=== PATIENT | male | born 1950 | race Caucasian/White ===

== ENCOUNTER 2017-11-10 17:34 | Emergency (ER) | payer MEDICARE, BC ==
[2017-11-10 18:09] VITALS: BP 128/82
[2017-11-10] MEDS ORDERED: Tetan/Diph/Pertus SYR(Tdap)* 0.5 ML SYR(BOOSTRIX) use SYR IM ONE (19:25)
--- NOTE | 2017-11-10 19:33 | UC ---
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 DENIES SALDANA, DIZZINESS, NAUSEA OR VISUAL DISTURBANCE. SUSTAINED A LACERATION TO RIGHT FOREHEAD. NOT UTD TETANUS. - History Of Current Complaint Chief Complaint: UCLaceration Stated Complaint: HEAD LAC Time Seen by Provider: 11/10/17 19:06 Hx Obtained From: Patient, Family/Manager Access - Laceration Location: Head - RIGHT FOREHEAD Mechanism Of Injury: Blunt Trauma Onset/Duration: Sudden Onset, Lasting Hours, Still Present Severity: Moderate Pain Intensity: 2 Pain Scale Used: 0-10 Numeric Aggravating Factors: Nothing - Allergies/Home Medications Allergies/Adverse Reactions: Allergies Allergy/AdvReac Type Severity Reaction Status Date / Time No Known Allergies Allergy Verified 11/10/17 18:04 PMH/Surg Hx/FS Hx/Imm Hx Other Cancer History: SKIN CANCER - Surgical History Surgical History: Yes Surgery Procedure, Year, and Place: carpal tunnel, tonsils - Family History Known Family History: Positive: Hypertension - Social History Alcohol Use: Daily Alcohol Amount: wine with dinner Substance Use Type: None Smoking Status (MU): Never Smoked Tobacco - Immunization History Most Recent Tetanus Shot: 06/2009 Review of Systems Constitutional: Negative Skin: Other - LACERATION Respiratory: Negative Cardiovascular: Negative Gastrointestinal: Negative All Other Systems Reviewed And Are Negative: Yes Physical Exam Triage Information Reviewed: Yes Appearance: Well-Appearing, No Pain Distress, Well-Nourished Vital Signs: Initial Vital Signs Temp 98.2 F 11/10/17 18:03 Pulse 57 11/10/17 18:03 Resp 18 11/10/17 18:03 BP 128/82 11/10/17 18:03 Pulse Ox 98 11/10/17 18:03 Vital Signs Reviewed: Yes Eyes: Positive: Conjunctiva Clear ENT: Positive: Hearing grossly normal, TMs normal Neck: Positive: Supple Respiratory: Positive: No respiratory distress, No accessory muscle use Cardiovascular: Positive: Pulses Normal Abdomen Description: Positive: Soft Musculoskeletal: Positive: No Edema Neurological: Positive: Alert Psychological: Positive: Normal Response To Family, Age Appropriate Behavior Skin: Positive: Other - 4CM CURVED LACERATION RIGHT FOREHEAD Laceration Repair - Laceration Repair 1 Description: Linear Laceration Size After Repair: Length (cm) - 4CM, Width (mm) - 0MM, Depth (mm) - 4MM Modified For Repair: No Type Injection: Local Anesthesia Used: 1.0% Lido Irrigation With Pressure Irrigation Device: Yes Closure Material: Sutures - 8 SIMPLE INTERRUPTED Suture Of: Skin Suture Type: Prolene - 5-0 Laceration Course/Dx - Differential Dx - Laceration/Wound Provider Diagnoses: LACERATION REPAIR - RIGHT FOREHEAD Discharge - Sign-Out/Discharge Documenting (check all that apply): Patient Departure All imaging exams completed and their final reports reviewed: No Studies - Discharge Plan Condition: Stable Disposition: HOME Patient Education Materials: Laceration (ED), Head Injury (ED) Referrals: Edwin Handy MD [Primary Care Provider] - If Needed Additional Instructions: KEEP DRESSINGS IN PLACE AND DRY FOR THE FIRST 24 HRS. THEN YOU MAY REMOVE THE DRESSING AND GENTLY CLEANSE WITH SOAP AND WATER. PAT DRY AND RE-BANDAGE. APPLY THIN LAYER ANTIBIOTIC OINTMENT UNDER BANDAGE FOR FIRST 3-4 DAYS ONLY. CHANGE BANDAGE DAILY AND NEEDED IF IT BECOMES SOILED OR WET. SEEK FOLLOW-UP IF YOU DEVELOP SPREADING REDNESS OF THE SKIN, PURULENT DRAINAGE, FEVER, INCREASED PAIN OR ANY OTHER CONCERNING SYMPTOMS. RETURN TO HAVE YOUR SUTURES REMOVED IN 10 DAYS GO TO THE ED WITHOUT FAIL IF YOU DEVELOP UNEQUAL PUPILS, VISUAL DISTURBANCE, GAIT INSTABILITY, SPEECH DIFFICULTY, NAUSEA/VOMITING, WORSENING HEADACHE, DIZZINESS, CONFUSION, WEAKNESS OR ANY OTHER CONCERNING SYMPTOMS. TETANUS IMMUNIZATION GIVEN (TDAP): You have been given an immunization against tetanus. Please record this in your records. In general, a booster is needed only once every 10 years. The tetanus shot protects against tetanus or "lockjaw," which is a complication of certain wound infections (the tetanus shot cannot protect against the actual infection). The immunization site may become warm and red due to local reaction. If this occurs, apply warm compresses and take aspirin or ibuprofen to reduce inflammation and discomfort. Return for evaluation if the reaction becomes severe. - Billing Disposition and Condition Condition: STABLE Disposition: Home
[2017-11-10] MEDS ORDERED: Lidocaine 1%* 5 ML VIAL INJ ONE (19:59)
== END 2017-11-10 20:40 | disposition home or self-care (01) ==
LOC: UCEAST 17:34
DX: S01.81XA Laceration without foreign body of other part of head, initial encounter (principal); W22.8XXA Striking against or struck by other objects, initial encounter; Y93.9 Activity, unspecified; Y92.9 Unspecified place or not applicable; Z23 Encounter for immunization
CPT/HCPCS: 12052; 90471; 90715; 99211; G0463

== ENCOUNTER 2017-11-21 09:01 | Emergency (ER) | payer BC, MEDICARE ==
[2017-11-21 09:25] VITALS: BP 127/78
--- NOTE | 2017-11-21 09:27 | UC ---
HPI Wound/Suture Re-check - HPI Summary HPI Summary: 67 y/o male presents to the urgent care requesting suture removal s/p laceration repair on 11/10/2017 on his RT side of forehead. Pt reports wound healing well. Pt denies fever, wound drainage, SALDANA, dizziness, visual disturbances, SOB, chest pain, abdominal pain, N/V/D. - History Of Current Complaint Chief Complaint: UCWounds Stated Complaint: STITCH REMOVAL Time Seen by Provider: 11/21/17 09:25 Hx Obtained From: Patient Onset/Duration: Gradual Onset, Lasting Days - 10 days, Resolved Severity: Mild Pain Intensity: 0 Pain Scale Used: 0-10 Numeric Surgery Date: 11/10/17 Head: 1 - 4.0cm - Allergies/Home Medications Allergies/Adverse Reactions: Allergies Allergy/AdvReac Type Severity Reaction Status Date / Time No Known Allergies Allergy Verified 11/21/17 09:20 PMH/Surg Hx/FS Hx/Imm Hx Previously Healthy: Yes - Pt denies PMHX - Surgical History Surgical History: Yes Surgery Procedure, Year, and Place: carpal tunnel, tonsils - Family History Known Family History: Positive: Hypertension - Social History Occupation: Employed Full-time Lives: With Family Alcohol Use: Daily Alcohol Amount: wine with dinner Substance Use Type: None Smoking Status (MU): Never Smoked Tobacco - Immunization History Most Recent Tetanus Shot: 06/2009 Review of Systems Constitutional: Negative Skin: Other - suture removal s/p laceration of Rt side of forehead ENT: Negative Respiratory: Negative Cardiovascular: Negative Gastrointestinal: Negative Genitourinary: Negative Motor: Negative Neurovascular: Negative Musculoskeletal: Negative Neurological: Negative Psychological: Negative Is Patient Immunocompromised?: No All Other Systems Reviewed And Are Negative: Yes Physical Exam Triage Information Reviewed: Yes Appearance: Well-Appearing, No Pain Distress, Well-Nourished Vital Signs: Initial Vital Signs Temp 97.7 F 11/21/17 09:21 Pulse 61 11/21/17 09:21 Resp 18 11/21/17 09:21 BP 127/78 11/21/17 09:21 Pulse Ox 98 11/21/17 09:21 Vital Signs Reviewed: Yes Eye Exam: Normal ENT Exam: Normal Dental Exam: Normal Neck exam: Normal Respiratory Exam: Normal Cardiovascular Exam: Normal Abdominal Exam: Normal Bowel Sounds: Positive: Present Musculoskeletal Exam: Normal Neurological Exam: Normal Psychological Exam: Normal Skin: Positive: Other - RT side of forehead near the scalp w/wound healing well with crusting and moderate granulation over, non tender to palpation, [address] Non tender to palaption, no swelling or drainage observed. Course/Dx - Course Course Of Treatment: 67 y/o male presents to the urgent care requesting suture removal s/p laceration repair on 11/10/2017 on his RT side of forehead. Pt reports wound healing well. Pt denies fever, wound drainage, SALDANA, dizziness, visual disturbances, SOB, chest pain, abdominal pain, N/V/D.Hxobtained. Pt w/ 8 sutures in placed on the Rt side of forehead,Wound healing well with crusting and moderate granulation over, non tender to palpation, 8 sutures removed w/o any difficulty. Pt tolerated well procedure. wound cleaned with sterile water and bacitracin applied over and cover with sterile gauze. Pt advised if redness , pain or fever develops to return to the urgent care or f/u with PCP for further treatment. Pt understood and agreed with plan of care - Differential Dx - Laceration/Wound Differential Diagnoses: Cellulitis, Dehiscence, Healing Wound, Suture Removal Provider Diagnoses: 1- RT side of forehead Suturre removal s/p laceration repair Discharge - Sign-Out/Discharge Documenting (check all that apply): Patient Departure - D/c home All imaging exams completed and their final reports reviewed: No Studies - Discharge Plan Condition: Stable Disposition: HOME Patient Education Materials: Acute Wound Care (ED) Referrals: Edwin Handy MD [Primary Care Provider] - If Needed Additional Instructions: 1-Please apply topical antibiotic over the wound. Keep wound clean and dry 2- If you develop fever or redness around wound please return to the Urgent care or f/u w/ your PCP for further management - Billing Disposition and Condition Condition: STABLE Disposition: Home - Attestation Statements Provider Attestation: Per institutional requirements, I have reviewed the chart, however, I was not consulted specifically or made aware of this patient by the midlevel provider. I did not personally evaluate, interact with , or disposition this patient
== END 2017-11-21 09:47 | disposition home or self-care (01) ==
LOC: UCEAST 09:01
DX: Z48.02 Encounter for removal of sutures (principal)

== ENCOUNTER 2019-04-11 09:28 | Day surgery (SDC) | payer MEDICARE, BC ==
[~2019-04-11 09:28] MED LIST: HYDROmorphone INJ1* 1 MG/ML SYRINGE IV PRN; Metoclopramide IV* 5 MG/ML 2 ML VIAL IV PRN; Naloxone* 0.4 MG/ML 1 ML VIAL IV PRN; Ondansetron INJ* 2 MG/ML VIAL IV PRN
[2019-04-11] MEDS ORDERED: ceFAZolin 2 GM in NS PREMIX(*) 2 GM/100 ML BAG IVPB ONE (09:39)
[2019-04-11] MEDS ORDERED: Bupivacaine 0.25% SDV PF* 10 ML VIAL INJ ONE (10:59)
[2019-04-11] MEDS ORDERED: Propofol* 10 MG/ML 20 ML BTL ONE (12:13)
[2019-04-11] MEDS ORDERED: HYDROmorphone INJ1* 1 MG/ML SYRINGE ONE (12:13)
[2019-04-11] MEDS ORDERED: Dexamethasone IV* 4 MG/ML 1 ML (4 MG) ONE (13:23)
[2019-04-11 15:38] VITALS: BP 148/86
--- NOTE | 2019-04-12 00:14 | OP ---
DATE OF OPERATION: 04/11/19 [facility] DATE OF : 54 SURGEON: Kanu Osullivan MD. FLOOR HELPER: BLAS Tao. An travel assistant was needed for the procedure to aid in positioning of the arm and retraction. ANESTHESIOLOGIST: Dr. Ward. ANESTHESIA: General. 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 OPERATIVE PROCEDURE: Right elbow olecranon bursectomy with excision of triceps enthesophyte. INDICATIONS: Mr. Stafford has olecranon bursitis. It has been there for years. He wished to have it excised. He understands the complications of potential wound problems, triceps tendon issues, ulnar nerve injury. He wishes to proceed. ESTIMATED BLOOD LOSS: 2 mL. COMPLICATIONS: None. FINDINGS: See above and below. DESCRIPTION OF PROCEDURE: Mr. Stafford was seen in the preoperative holding area. The correct site, side, and procedure were identified. We came back to the operating room. The arm was prepped and draped in the usual fashion and a time-out was performed. The arm was exsanguinated with the Esmarch and the tourniquet was inflated to 250 mmHg. He was positioned in the lateral decubitus position with the arm draped over in an arm eric. After the tourniquet was inflated, I made a longitudinal incision over the posterior elbow. Dissection was carried down. The olecranon bursa was shelled out. It was taken right off the periosteum of the ulna and off the triceps fascia. Lazo's ligament overlying the ulnar nerve was preserved. Once I had fully excised it, I handed off the specimen. Lastly, I just shelled out a little bit of a triceps enthesophyte that he had. That was excised. I rongeured the bone there until there was a nice smooth edge. At this point, everything was looking very nice. The hemostasis was obtained with a Bovie. The wound was then copiously irrigated out. Skin was closed with 4-0 nylon suture. 0.25% Marcaine was infiltrated about the area. A well-padded long arm splint was applied at the elbow in about 60 degrees of flexion. He was taken to the recovery room in stable condition. [id number]/[facility] #: [id number]
== END 2019-04-11 15:41 | disposition home or self-care (01) ==
LOC: OR 09:28
PROVIDERS: ATTEND Orthopaedic Surgery Hand Surgery
DX: M70.21 Olecranon bursitis, right elbow (principal); M25.721 Osteophyte, right elbow; Z85.820 Personal history of malignant melanoma of skin
CPT/HCPCS: 88304; J0690; J1100; J1170; J2704; J3490